=== PATIENT | female | born 1950 | race Caucasian/White ===

== ENCOUNTER 2018-04-19 17:18 | Inpatient (IN) ==
[2018-04-19] MEDS ORDERED: D5% in Water 1,000 ML IVC PRN (19:42)
[2018-04-19] MEDS ORDERED: *HR* Dextrose 50 % in Water (Syg) 50 ML SYRINGE IVP PRN (19:42)
[2018-04-19] MEDS ORDERED: Dextrose Gel 15 GM/37.5 ML TUBE PO PRN ×2 (19:42)
[2018-04-19] MEDS ORDERED: D5% in Lactated Ringers 1,000 ML IVC SCH (19:45)
--- NOTE | 2018-04-19 20:04 | Internal Med History&Physical ---
Date of Encounter: 04/19/18 Time of Encounter: 20:01 Internal Medicine - H&P: HPI Chief complaint: fatigue Admitted From: Hospital to Hospital Transfer Plans for Post Hospital Care: Home History of present illness: Dorothy Morocho is a 67-year-old woman who reports a history of hypertension, diabetes and hyperlipidemia who presents on transfer from [facility] for evaluation of acute blood loss anemia due to upper GI bleed. She states that approximately one year ago she was found anemic and subsequently had an EGD and colonoscopy which found a bleeding vein in her stomach; since then she has been on twice a day PPI. Now she says that about one week ago she was told by her primary care physician that she was anemic and would likely require blood transfusion but this was never set up. Yesterday she noticed dark stool and started to feel generalized fatigue, malaise and weakness but no abdominal pain or paulo red blood in stool. She went to the emergency room where it is reported that her hemoglobin was 5.8 and she was given 2 units of blood transfusion prior to her transfer here. At this time she reports feeling well and has no complaints. Past Med Surg Social Fam HX - Past Medical History Medical history: diabetes, hypertension Psychiatric history: no psych history - Past Surgical History Additional surgical history: Gallbladder removed. tubal - Social History Smoking Status: Current every day smoker Packs per day: 1 PPD Smokeless Tobacco Status: No Alcohol use: none Drug use: none Internal Medicine - H&P: Meds Allergy/AdvReac Type Severity Reaction Status Date / Time Sulfa (Sulfonamide AdvReac Nausea Verified 06/18/16 09:32 Antibiotics) All Systems PM: A 10-system review of systems was performed and is negative for pertinent findings except as documented above in the HPI. Family history of heart disease in father who is now . - Constitutional Vitals: Temp Pulse Resp BP Pulse Ox 98.6 F 78 16 160/76 96 04/19/18 18:37 04/19/18 18:37 04/19/18 18:37 04/19/18 18:37 04/19/18 18:37 Exam: Vitals: Reviewed General: Well-developed and well-appearing lying comfortably in bed in no acute distress. Skin: Warm and supple. HEENT: Moist mucous membranes. (+) conjunctivae pallor. Neck: No lymphadenopathy. No JVD. No palpable thyroid. Chest: Normal thoracic expansion. Diminished breath sounds in the left lower lung field. Heart: Normal S1 & S2; rhythmic. Grade 4/6 systolic murmur auscultated at the apex and right upper sternal border.. Abdomen: Non-distended, soft and non-tender to palpation. No peritoneal reaction. Extremities: (+) fingernail clubbing but no cyanosis or edema. No calf tenderness. Normal distal pulses. Neurological: Awake, alert and oriented to person, place and time. No focal deficits. Psych: Affect appropriate. Internal Med - H&P Results - Labs CBC & Chem 7: 04/19/18 19:59 04/19/18 19:59 - Assessment and plan (1) UGIB (upper gastrointestinal bleed) Current Visit: Yes Status: Acute Assessment and plan: Has a prior history of a similar event. Will keep NPO tonight and consult GI tomorrow for endoscopic evaluation. Start BID IV PPI. Currently asymptomatic and not warranting urgent intervention. (2) Anemia Current Visit: Yes Status: Acute Assessment and plan: secondary to blood loss as evidenced by Hgb of 5.8 at [facility] and dark stool for 1 day. Now s/p 2U pRBC. Will recheck values here. Will require iron supplementation once cleared for oral intake. Qualifiers: Anemia type: iron deficiency Iron deficiency anemia type: chronic blood loss Qualified Code(s): D50.0 - Iron deficiency anemia secondary to blood loss (chronic) (3) Diabetes Current Visit: Yes Status: Acute Assessment and plan: Uses metformin at home. Will place on insulin sliding scale in the interim. Qualifiers: Diabetes mellitus type: type 2 Diabetes mellitus chcf insulin use: without chcf use Diabetes mellitus complication status: with unspecified complications Qualified Code(s): E11.8 - Type 2 diabetes mellitus with unspecified complications (4) HTN (hypertension) Current Visit: Yes Status: Chronic Assessment and plan: Well controlled. Will hold anti-hypertensives for the time being in the setting of blood loss until more stable. Qualifiers: Hypertension type: essential hypertension Qualified Code(s): I10 - Essential (primary) hypertension (5) HLD (hyperlipidemia) Current Visit: Yes Status: Acute Assessment and plan: Can resume statin/ezetimibe once cleared for oral intake. Qualifiers: Hyperlipidemia type: unspecified Qualified Code(s): E78.5 - Hyperlipidemia, unspecified (6) Smoker Current Visit: Yes Status: Acute Assessment and plan: Smoking cessation counseling provided. Resources made available. (7) Murmur Current Visit: Yes Status: Acute Assessment and plan: Likely secondary to severe anemia. Will get an echo to rule out valvulopathy just in case. (8) Breath sounds, abnormal Current Visit: Yes Status: Acute Assessment and plan: Notable reduction of breath sounds in the left chest. No rales, wheezing or rhonchi. Will get a Pa/lat x-ray for review. (9) DVT prophylaxis Current Visit: Yes Status: Acute - Time Spent With Patient Total time spent is greater than 50% in coordination of care (as documented) at patient's floor/unit and/or counseling patient: Greater than 35 minutes
[2018-04-19 20:11] LABS: Immature Granulocytes % 0.3 % (0-4)
[2018-04-19 20:12] LABS: Basophils % 0.3 %; Eosinophils # 0.1 K/mcL (0.0-0.6); Eosinophils % 1.3 %; Hematocrit 28.1 % (35.3-44.9); Hemoglobin 8.2 g/dL (11.5-15.4); Lymphocytes # 1.5 K/mcL (0.6-4.6); Lymphocytes % 24.2 %; Mean Corpuscular HGB Conc 29.2 g/dL (31.6-35.5); Mean Corpuscular Hemoglobin 21.9 pg (28.0-33.3); Mean Corpuscular Volume 75.1 fL (83.0-100.0); Mean Platelet Volume 10.3 fL (9.4-12.4); Monocytes # 0.5 K/mcL (0.0-1.3); Monocytes % 8.6 %; Nucleated Red Blood Cells 0.6 /100 WBC (0); Platelet Count 241 K/mcL (140-400); Red Blood Count 3.74 M/mcL (3.82-4.97); Red Cell Distribution Width 18.6 % (11.5-14.5); Segmented Neutrophils % 65.3 %
[2018-04-19 20:13] LABS: Neutrophils # 4.1 K/mcL (1.6-8.9)
[2018-04-19 20:21] LABS: INR 0.9; Prothrombin Time 10.2 Seconds (9.4-12.1)
[2018-04-19 20:24] LABS: Activated Partial Thrombo Time 27.7 Seconds (26.0-36.0)
[2018-04-19 20:31] LABS: Alanine Aminotransferase 47 Units/L (7-52); Albumin 3.8 g/dL (3.5-5.7); Albumin/Globulin Ratio 1.4 (1.1-2.2); Alkaline Phosphatase 89 Units/L (34-104); Aspartate Amino Transferase 43 Units/L (13-39); BUN/Creatinine Ratio 18 (6-26); Bilirubin,Direct 0.2 mg/dL (0.0-0.2); Bilirubin,Indirect 0.9 mg/dL (0.0-1.2); Bilirubin,Total 1.1 mg/dL (0.3-1.0); Blood Urea Nitrogen 20 mg/dL (8-23); Calcium 9.2 mg/dL (8.6-10.3); Carbon Dioxide 23 mEq/L (23-29); Chloride 104 mEq/L (98-107); Globulin 2.7 g/dL (2.4-3.5); Glucose 110 mg/dL (70-105); Osmolality,Calculated 281 (280-300); Potassium 4.1 mEq/L (3.5-5.1); Sodium 134 mEq/L (136-145); Total Protein 6.5 g/dL (6.4-8.9); eGFR For Non-African Americans 50 (> 60)
[2018-04-19 20:37] LABS: Hypochromasia Present (Not Present); Platelet Estimate Normal (Normal)
[2018-04-19] MEDS: Pantoprazole 40 MG VIAL IVP SCH (23:00)
[2018-04-20] MEDS: Insulin LISPRO 300 UNITS/3 ML VIAL SQ SCH ×4 (01:19→17:31)
[2018-04-20 04:38] LABS: Basophils % 0.5 %; Eosinophils # 0.1 K/mcL (0.0-0.6); Eosinophils % 1.4 %; Hematocrit 28.6 % (35.3-44.9); Hemoglobin 8.2 g/dL (11.5-15.4); Immature Granulocytes % 0.5 % (0-4); Lymphocytes # 1.4 K/mcL (0.6-4.6); Lymphocytes % 22.9 %; Mean Corpuscular HGB Conc 28.7 g/dL (31.6-35.5); Mean Corpuscular Hemoglobin 21.6 pg (28.0-33.3); Mean Corpuscular Volume 75.3 fL (83.0-100.0); Mean Platelet Volume 10.8 fL (9.4-12.4); Monocytes # 0.5 K/mcL (0.0-1.3); Neutrophils # 4.2 K/mcL (1.6-8.9); Nucleated Red Blood Cells 0.5 /100 WBC (0); Platelet Count 245 K/mcL (140-400); Red Cell Distribution Width 18.4 % (11.5-14.5); Segmented Neutrophils % 66.7 %
[2018-04-20 04:59] LABS: Anisocytosis 1+ (Not Present); Hypochromasia Present (Not Present); Platelet Estimate Normal (Normal); Polychromasia 1+ (Not Present)
[2018-04-20] MEDS: Pantoprazole 40 MG VIAL IVP SCH ×2 (09:54→22:26)
--- NOTE | 2018-04-20 12:03 | Internal Med Progress Note ---
Hospitalist Progress Note - Encounter Date of Encounter: 04/20/18 Time of Encounter: 12:01 - Subjective Interval History: Patient sitting comfortably on chair watching TV. No active bleeding. Reviewed the lab with a stable hemoglobin. Awaiting to be seen by GI specialist Denies fever chills nausea vomiting headache dizziness chest pain shortness of breath abdominal pain urinary complaint - Exam Vitals: Temp Pulse Resp BP Pulse Ox 97.9 F 77 15 122/76 94 04/20/18 10:46 04/20/18 10:46 04/20/18 10:46 04/20/18 10:46 04/20/18 10:46 Exam: General appearance: No acute distress Head exam: Atraumatic Eye exam: EOMI, PERRLA ENT exam: Moist oral mucosa Neck nontender, supple Respiratory exam: Clear to auscultation bilaterally Cardiovascular exam: Regular rate and rhythm, 2/6 systolic murmur Abdominal exam: Soft, nontender, nondistended, positive bowel sounds Extremities exam: No calf tenderness, no pedal edema Present: Skin-no rash, warm, dry, intact Neurological exam: Alert, awake, oriented 3, CN II-XII intact, no focal deficits. No facial droop. Normal speech. Normal gait. - Assessment and Plan (1) Anemia Current Visit: Yes Status: Acute Assessment and Plan: Symptomatic secondary to acute blood loss. secondary to blood loss as evidenced by Hgb of 5.8 at [facility] and dark stool for 1 day. Now s/p 2U pRBC. A stable hemoglobin at this time is staying around it. Patient takes iron supplementation at home. (2) UGIB (upper gastrointestinal bleed) Current Visit: Yes Status: Acute Assessment and Plan: Has a prior history of a similar event and had endoscopy done with finding of bleeding ulcer in ?vein. keep NPO while awaiting for GI specialist for possible endoscopy. Continue IV fluid. PPI IV twice a day. SCDs for GI prophylaxis. (3) Diabetes Current Visit: Yes Status: Acute Assessment and Plan: Uses metformin at home. Will place on insulin sliding scale in the interim. (4) HTN (hypertension) Current Visit: Yes Status: Chronic Assessment and Plan: Well controlled. Resumed home antihypertensive medicine except lisinopril while keeping eye on her blood pressures. No active bleeding. Close monitoring of BP (5) HLD (hyperlipidemia) Current Visit: Yes Status: Acute Assessment and Plan: Can resume statin/ezetimibe once cleared for oral intake. (6) Smoker Current Visit: Yes Status: Acute Assessment and Plan: Smoking cessation counseling provided. Resources made available. (7) Murmur Current Visit: Yes Status: Acute Assessment and Plan: Likely secondary to severe anemia. Echocardiogram with preserved LV function 65% mild a as, ER, ER, UT, mild pulmonary hypertension otherwise no acute finding. (8) Breath sounds, abnormal Current Visit: Yes Status: Acute Assessment and Plan: Chest x-ray with no acute finding except some emphysematous changes. Slight diminished breath sounds but otherwise clear to auscultation (9) DVT prophylaxis Current Visit: Yes Status: Acute Assessment and Plan: SCDs - Time Spent with Patient Total time spent is greater than 50% in coordination of care (as documented) at patient's floor/unit and/or counseling patient: 25 - 35 minutes Plan of Care Discussed with: patient (Discuss plan of care with nurse) Internal Medicine: Result - Labs CBC & Chem 7: 04/20/18 03:07 04/19/18 19:59 Labs: Short CBC 04/19/18 04/20/18 Range/Units 19:59 03:07 WBC 6.2 6.3 (4.3-11.1) K/mcL Hgb 8.2 L 8.2 L (11.5-15.4) g/dL Hct 28.1 L 28.6 L (35.3-44.9) % Plt Count 241 245 (140-400) K/mcL Neutrophils # 4.1 4.2 (1.6-8.9) K/mcL BMP 04/19/18 19:59 Sodium 134 L Potassium 4.1 Chloride 104 Carbon Dioxide 23 BUN 20 Creatinine 1.10 Glucose 110 H Calcium 9.2 Liver Function 04/19/18 Range/Units 19:59 Total Bilirubin 1.1 H (0.3-1.0) mg/dL Direct Bilirubin 0.2 (0.0-0.2) mg/dL AST 43 H (13-39) Units/L ALT 47 (7-52) Units/L Alkaline Phosphatase 89 (34-104) Units/L Albumin 3.8 (3.5-5.7) g/dL - ABG Interpretation ABG results: PT/INR, D-dimer PT 10.2 Seconds (9.4-12.1) 04/19/18 19:59 - Impressions Impressions Chest X-Ray 04/19/18 21:33 IMPRESSION: No definite acute pulmonary disease. Pulmonary sequela typical of that seen with smoking, including emphysema. Correlate with clinical history. Calcific atherosclerotic disease aorta. D/ / Augustus Tavarez / Augustus Tavarez Interpreting Provider: Augustus Tavarez Echocardiogram 04/20/18 11:00 Impressions: LVEF 65%. Normal LV chamber size, wall thickness and function. Normal right ventricular structure and function. Mild aortic stenosis and mild aortic regurgitation. Mild mitral regurgitation. Mild tricuspid regurgitation. Mild pulmonary hypertension. Left Ventricular Wall Motion: Rest Echo Findings All wall segments showed normal motion. Findings: Study Quality * Technically adequate exam. ECG Findings * Normal sinus rhythm. Left Ventricle * LVEF 65%. * Normal LV chamber size, wall thickness and function. * Normal left ventricular diastolic function. * Definity echo contrast was not used. Right Ventricle * Normal right ventricular structure and function. Left Atrium * Normal left atrial size. Right Atrium * Normal right atrial size. Interatrial Septum * Interatrial septum not well evaluated. * No evidence of PFO by color Doppler. Aortic Valve * Severely calcified commissure between right cusp and non-coronary cusp. * Mild aortic stenosis. * Mild aortic regurgitation. Mitral Valve * Mild mitral annular calcification * No mitral stenosis. * Mild mitral regurgitation. Tricuspid Valve * Normal tricuspid valve structure. * No tricuspid stenosis. * Mild tricuspid regurgitation. * Estimated RVSP is 39 mmHg. * Estimated RA pressure is 3 mmHg. * Mild pulmonary hypertension. Pulmonic Valve * Pulmonic valve is not well visualized. * No pulmonic stenosis. * Trace pulmonic regurgitation. Aorta * Normally sized aortic root. Pericardium * The pericardium appears normal. IVC * Normal IVC dimensions and inspiratory collapse. Consult Discharge Plan - Plan Referrals: Ivonne Cabezas [Primary Care Provider] - (1) Anemia Qualifiers: Anemia type: iron deficiency Iron deficiency anemia type: chronic blood loss Qualified Code(s): D50.0 - Iron deficiency anemia secondary to blood loss ( chronic) (3) Diabetes Qualifiers: Diabetes mellitus type: type 2 Diabetes mellitus intermediate accountant insulin use: without residential use Diabetes mellitus complication status: with unspecified complications Qualified Code(s): E11.8 - Type 2 diabetes mellitus with unspecified complications (4) HTN (hypertension) Qualifiers: Hypertension type: essential hypertension Qualified Code(s): I10 - Essential (primary) hypertension (5) HLD (hyperlipidemia) Qualifiers: Hyperlipidemia type: unspecified Qualified Code(s): E78.5 - Hyperlipidemia, unspecified
--- NOTE | 2018-04-20 12:17 | Gastroenterology Consult Note ---
<Gio Bullock - Last Filed: 04/20/18 12:15> Date of Encounter: 04/20/18 Time of Encounter: 10:10 - Assessment and plan (1) Anemia Current Visit: Yes Status: Acute Assessment and plan: At [facility] Hgb 5.8 and was given 2 units PRBC. On admission here, Hgb 8.2 with MCV 75.1 and BUN 20. Today Hgb 8.2 with MC 75.3. Plan for EGD and colonoscopy tomorrow. Clear liquid diet today, no red or purple. NPO at midnight. If unable tolerate NuLytely please use MiraLAX prep. If not clear by 6 AM, give 2 tap water enemas. Qualifiers: Anemia type: iron deficiency Iron deficiency anemia type: chronic blood loss Qualified Code(s): D50.0 - Iron deficiency anemia secondary to blood loss (chronic) (2) GI bleed Current Visit: Yes Status: Acute Assessment and plan: Pt with BRBPR and dark stool. Continue PPI. Plan for EGD and colonoscopy tomorrow. Clear liquid diet today, no red or purple. NPO at midnight. If unable tolerate NuLytely please use MiraLAX prep. If not clear by 6 AM, give 2 tap water enemas. Qualifiers: GI bleed type/associated pathology: unspecified gastrointestinal hemorrhage type Qualified Code(s): K92.2 - Gastrointestinal hemorrhage, unspecified - Time Spent With Patient Total time spent is greater than 50% in coordination of care (as documented) at patient's floor/unit and/or counseling patient: GI History of Present Illness - Data of Consult Patient: new to practice Requesting Physician: Nicolas Sanders - Consult Narrative Reason for consult: UGIB, anemia History of present illness: Ms. Morocho is a 67 year old female with PMHx of DM, HTN, HLD who was transferred from [facility] for evaluation of acute blood loss anemia due to upper GI bleed. She states that approximately one year ago she was found anemic and subsequently had an EGD and colonoscopy at [place] in [place], which found a bleeding vein in her stomach; since then she has been on twice a day PPI. She reports 3 episodes of BRBPR on Friday but none on Friday. She also reports dark stool. At [facility] Hgb 5.8 and was given 2 units PRBC. On admission here, Hgb 8.2 with MCV 75.1 and BUN 20. Today Hgb 8.2 with MC 75.3. Procedures: EGD/colonoscopy 10/2016 [facility] in [place]: bleeding vein in her stomach per patient. NSAIDs: ASA Anticoagulation: None Past Med Surg Social Fam HX - Past Medical History Medical history: diabetes, hypertension Psychiatric history: no psych history - Past Surgical History Additional surgical history: Gallbladder removed. tubal - Social History Smoking Status: Current every day smoker Packs per day: 1 PPD Smokeless Tobacco Status: No Alcohol use: none Drug use: none - Gastrointestinal Gastrointestinal: Present: as per HPI - Constitutional Constitutional: as per HPI - EENT Eyes: as per HPI Ears: Present: as per HPI Nose, mouth and throat: Present: as per HPI - Cardiovascular Cardiovascular ROS: Present: as per HPI - Respiratory Respiratory IM: Present: as per HPI - Genitourinary Genitourinary: Absent: change in color, Urinary frequency - Neurological ROS Neurological GI: Present: as per HPI - Hematologic/Lymphatic Hematologic/Lymphatic pediatric: Present: as per HPI - Musculoskeletal Musculoskeletal ROS GI: Present: as per HPI - Integumentary Integumentary GI: Present: as per HPI - Psychiatric ROS Psychiatric GI: Present: as per HPI - Endocrine Endocrine IM: Present: as per HPI - Constitutional Vitals: Temp Pulse Resp BP Pulse Ox 97.9 F 77 15 122/76 94 04/20/18 10:46 04/20/18 10:46 04/20/18 10:46 04/20/18 10:46 04/20/18 10:46 General appearance: Present: cooperative, A&O X 3, no acute distress, answers questions appropriately - Head Head exam: Present: atraumatic, normocephalic - Eye Eye exam: Present: normal appearance, sclera anicteric - ENT ENT exam: Present: mucous membranes dry - Neck Neck exam general surgery: Present: normal inspection, trachea midline - Respiratory Respiratory exam: Present: CTAB. Absent: rales, rhonchi - Cardiovascular Cardiovascular exam: Present: +S1, +S2 Additional comments: + murmur - GI/Abdominal GI/Abdominal exam: Present: soft, no peritoneal signs. Absent: distended, firm, guarding, tenderness - Rectal Rectal exam: Present: deferred - Extremities Exam Extremities exam: Present: warm - Neurological Exam Neurological exam: Present: no focal deficits - Psychiatric Psychiatric exam: Present: normal affect, normal mood - Skin Skin exam: Present: dry, intact, normal color, warm Results - Labs CBC & Chem 7: 04/20/18 03:07 04/19/18 19:59 Labs: Last Result Calcium 9.2 mg/dL (8.6-10.3) 04/19/18 19:59 Entire Visit Hgb 8.2 g/dL (11.5-15.4) L 04/20/18 03:07 Hct 28.6 % (35.3-44.9) L 04/20/18 03:07 PT 10.2 Seconds (9.4-12.1) 04/19/18 19:59 Total Bilirubin 1.1 mg/dL (0.3-1.0) H 04/19/18 19:59 AST 43 Units/L (13-39) H 04/19/18 19:59 ALT 47 Units/L (7-52) 04/19/18 19:59 - ABG ABG results: PT/INR, D-dimer PT 10.2 Seconds (9.4-12.1) 04/19/18 19:59 - Impressions Impressions Chest X-Ray 04/19/18 21:33 IMPRESSION: No definite acute pulmonary disease. Pulmonary sequela typical of that seen with smoking, including emphysema. Correlate with clinical history. Calcific atherosclerotic disease aorta. D/ / Augustus Tavarez / Augustus Tavarez Interpreting Provider: Augustus Tavarez Echocardiogram 04/20/18 11:00 Impressions: LVEF 65%. Normal LV chamber size, wall thickness and function. Normal right ventricular structure and function. Mild aortic stenosis and mild aortic regurgitation. Mild mitral regurgitation. Mild tricuspid regurgitation. Mild pulmonary hypertension. Left Ventricular Wall Motion: Rest Echo Findings All wall segments showed normal motion. Findings: Study Quality * Technically adequate exam. ECG Findings * Normal sinus rhythm. Left Ventricle * LVEF 65%. * Normal LV chamber size, wall thickness and function. * Normal left ventricular diastolic function. * Definity echo contrast was not used. Right Ventricle * Normal right ventricular structure and function. Left Atrium * Normal left atrial size. Right Atrium * Normal right atrial size. Interatrial Septum * Interatrial septum not well evaluated. * No evidence of PFO by color Doppler. Aortic Valve * Severely calcified commissure between right cusp and non-coronary cusp. * Mild aortic stenosis. * Mild aortic regurgitation. Mitral Valve * Mild mitral annular calcification * No mitral stenosis. * Mild mitral regurgitation. Tricuspid Valve * Normal tricuspid valve structure. * No tricuspid stenosis. * Mild tricuspid regurgitation. * Estimated RVSP is 39 mmHg. * Estimated RA pressure is 3 mmHg. * Mild pulmonary hypertension. Pulmonic Valve * Pulmonic valve is not well visualized. * No pulmonic stenosis. * Trace pulmonic regurgitation. Aorta * Normally sized aortic root. Pericardium * The pericardium appears normal. IVC * Normal IVC dimensions and inspiratory collapse. Consult Discharge Plan - Plan Referrals: Ivonne Cabezas [Primary Care Provider] - <Gwen Pitts - Last Filed: 04/20/18 20:31> Date of Encounter: 04/20/18 Time of Encounter: 15:00 - Time Spent With Patient Total time spent is greater than 50% in coordination of care (as documented) at patient's floor/unit and/or counseling patient: GI History of Present Illness - Data of Consult Requesting Physician: Nicolas Sanders - Consult Narrative History of present illness: Ms. Morocho is a 67 year old female - Constitutional Vitals: Temp Pulse Resp BP Pulse Ox 97.6 F 84 16 138/70 98 04/20/18 19:51 04/20/18 19:51 04/20/18 19:51 04/20/18 19:51 04/20/18 19:51 Results - Labs CBC & Chem 7: 04/20/18 03:07 04/19/18 19:59 Labs: Last Result Calcium 9.2 mg/dL (8.6-10.3) 04/19/18 19:59 Entire Visit Hgb 8.2 g/dL (11.5-15.4) L 04/20/18 03:07 Hct 28.6 % (35.3-44.9) L 04/20/18 03:07 PT 10.2 Seconds (9.4-12.1) 04/19/18 19:59 Total Bilirubin 1.1 mg/dL (0.3-1.0) H 04/19/18 19:59 AST 43 Units/L (13-39) H 04/19/18 19:59 ALT 47 Units/L (7-52) 04/19/18 19:59 - ABG ABG results: PT/INR, D-dimer PT 10.2 Seconds (9.4-12.1) 04/19/18 19:59 - Impressions Impressions Chest X-Ray 04/19/18 21:33 IMPRESSION: No definite acute pulmonary disease. Pulmonary sequela typical of that seen with smoking, including emphysema. Correlate with clinical history. Calcific atherosclerotic disease aorta. D/ / Augustus Tavarez / Augustus Tavarez Interpreting Provider: Augustus Tavarez Echocardiogram 04/20/18 11:00 Impressions: LVEF 65%. Normal LV chamber size, wall thickness and function. Normal right ventricular structure and function. Mild aortic stenosis and mild aortic regurgitation. Mild mitral regurgitation. Mild tricuspid regurgitation. Mild pulmonary hypertension. Left Ventricular Wall Motion: Rest Echo Findings All wall segments showed normal motion. Findings: Study Quality * Technically adequate exam. ECG Findings * Normal sinus rhythm. Left Ventricle * LVEF 65%. * Normal LV chamber size, wall thickness and function. * Normal left ventricular diastolic function. * Definity echo contrast was not used. Right Ventricle * Normal right ventricular structure and function. Left Atrium * Normal left atrial size. Right Atrium * Normal right atrial size. Interatrial Septum * Interatrial septum not well evaluated. * No evidence of PFO by color Doppler. Aortic Valve * Severely calcified commissure between right cusp and non-coronary cusp. * Mild aortic stenosis. * Mild aortic regurgitation. Mitral Valve * Mild mitral annular calcification * No mitral stenosis. * Mild mitral regurgitation. Tricuspid Valve * Normal tricuspid valve structure. * No tricuspid stenosis. * Mild tricuspid regurgitation. * Estimated RVSP is 39 mmHg. * Estimated RA pressure is 3 mmHg. * Mild pulmonary hypertension. Pulmonic Valve * Pulmonic valve is not well visualized. * No pulmonic stenosis. * Trace pulmonic regurgitation. Aorta * Normally sized aortic root. Pericardium * The pericardium appears normal. IVC * Normal IVC dimensions and inspiratory collapse. - Attending Attestation I examined this patient and my medical decision-making was reviewed with the Resident Physician. I agree with the documented findings, disposition and treatment plan as described except to the extent set forth below. Pt seen, Pt deniesabd pain or black stool. Does has occ blood in stool. o/E Abd soft. A; Severe PATRICA, microcytic. R: EGD-colon am
[2018-04-20] MEDS ORDERED: SODIUM CHLORIDE/NAHCO3/KCL/PEG 4,000 ML SOLN.RECON PO ONE (17:00)
[2018-04-21] MEDS: Insulin LISPRO 300 UNITS/3 ML VIAL SQ SCH ×4 (01:03→18:10)
[2018-04-21] MEDS: Pantoprazole 40 MG VIAL IVP SCH ×2 (11:07→23:04)
[2018-04-21] MEDS: Bisoprolol/HCTZ 10/6.25 TABLET PO SCH (11:07)
[2018-04-21] MEDS ORDERED: D5% in Water 1,000 ML IVC PRN (15:19)
[2018-04-21] MEDS ORDERED: Dextrose Gel 15 GM/37.5 ML TUBE PO PRN (15:19)
[2018-04-21] MEDS ORDERED: *HR* Dextrose 50 % in Water (Syg) 50 ML SYRINGE IVP PRN (15:19)
--- NOTE | 2018-04-21 16:22 | Internal Med Progress Note ---
Hospitalist Progress Note - Encounter Date of Encounter: 04/21/18 Time of Encounter: 16:13 - Subjective Interval History: Patient sitting comfortably on chair watching TV. No active bleeding. Patient is nothing by mouth and plan for endoscopically today. Denies fever chills nausea vomiting headache dizziness chest pain shortness of breath abdominal pain urinary complaint - Exam Vitals: Temp Pulse Resp BP Pulse Ox 98.2 F 74 15 149/78 93 04/21/18 14:51 04/21/18 14:51 04/21/18 14:51 04/21/18 14:51 04/21/18 14:51 Exam: General appearance: No acute distress Respiratory exam: Clear to auscultation bilaterally Cardiovascular exam: Regular rate and rhythm, 2/6 systolic murmur Abdominal exam: Soft, nontender, nondistended, positive bowel sounds Neurological-grossly intact - Assessment and Plan (1) Anemia Current Visit: Yes Status: Acute Assessment and Plan: Admission patient was Symptomatic secondary to acute blood loss. secondary to blood loss as evidenced by Hgb of 5.8 at [facility] and dark stool for 1 day. Now s/p 2U pRBC. A stable hemoglobin at this time. Patient takes iron supplementation at home. (2) UGIB (upper gastrointestinal bleed) Current Visit: Yes Status: Acute Assessment and Plan: Has a prior history of a similar event and had endoscopy done with finding of bleeding ulcer in ?vein. keep NPO . scheduled endoscopy later in the evening today. Continue IV fluid. PPI IV twice a day. SCDs for GI prophylaxis. plan for dc tomorrow if stable (3) Diabetes Current Visit: Yes Status: Acute Assessment and Plan: Uses metformin at home. Will continue on insulin sliding scale in the interim. (4) HTN (hypertension) Current Visit: Yes Status: Chronic Assessment and Plan: Well controlled. Resumed home antihypertensive medicine except lisinopril while keeping eye on her blood pressures. No active bleeding. Close monitoring of BP (5) HLD (hyperlipidemia) Current Visit: Yes Status: Acute Assessment and Plan: Can resume statin/ezetimibe once cleared for oral intake. (6) Smoker Current Visit: Yes Status: Acute Assessment and Plan: Smoking cessation counseling provided. Resources made available. (7) Murmur Current Visit: Yes Status: Acute Assessment and Plan: Likely secondary to severe anemia. Echocardiogram with preserved LV function 65% mild a as, ER, ER, [place], mild pulmonary hypertension otherwise no acute finding. (8) Breath sounds, abnormal Current Visit: Yes Status: Acute Assessment and Plan: Chest x-ray with no acute finding except some emphysematous changes. Slight diminished breath sounds but otherwise clear to auscultation (9) DVT prophylaxis Current Visit: Yes Status: Acute Assessment and Plan: SCDs - Time Spent with Patient Total time spent is greater than 50% in coordination of care (as documented) at patient's floor/unit and/or counseling patient: less than 15 minutes Plan of Care Discussed with: patient Internal Medicine: Result - Labs CBC & Chem 7: 04/20/18 03:07 04/19/18 19:59 - ABG Interpretation ABG results: PT/INR, D-dimer PT 10.2 Seconds (9.4-12.1) 04/19/18 19:59 Consult Discharge Plan - Plan Referrals: Ivonne Cabezas [Primary Care Provider] - (1) Anemia Qualifiers: Anemia type: iron deficiency Iron deficiency anemia type: chronic blood loss Qualified Code(s): D50.0 - Iron deficiency anemia secondary to blood loss (chronic) (3) Diabetes Qualifiers: Diabetes mellitus type: type 2 Diabetes mellitus [facility] insulin use: without [facility] use Diabetes mellitus complication status: with unspecified complications Qualified Code(s): E11.8 - Type 2 diabetes mellitus with unspecified complications (4) HTN (hypertension) Qualifiers: Hypertension type: essential hypertension Qualified Code(s): I10 - Essential (primary) hypertension (5) HLD (hyperlipidemia) Qualifiers: Hyperlipidemia type: unspecified Qualified Code(s): E78.5 - Hyperlipidemia, unspecified
[2018-04-21] MEDS ORDERED: *HR* Midazolam HCl 5 MG/5 ML VIAL IVP ONE ×2 (17:50→17:57)
[2018-04-21] MEDS ORDERED: *HR* FentaNYL (PF) 100 MCG/2 ML VIAL ONE (17:50)
[2018-04-21] MEDS ORDERED: *HR* FentaNYL (PF) 100 MCG/2 ML VIAL IVP ONE (17:57)
[2018-04-21] MEDS ORDERED: Simethicone 40 MG/0.6 ML MLS IR ONE (17:57)
[2018-04-21] MEDS ORDERED: Tetracaine/Benzocaine/Butamben 1 SPRAY AEROSOL MM ONE (17:57)
--- NOTE | 2018-04-21 18:08 | Pre-Sedation Evaluation ---
Pre-sedation evaluation - Pre-sedation checklist Date of procedure: 04/21/18 Recent Vitals: Last Vital Signs Temp 98.2 F 04/21/18 14:51 Pulse 77 04/21/18 17:42 Resp 16 04/21/18 17:42 BP 150/83 04/21/18 17:42 Pulse Ox 95 04/21/18 17:42 ASA Classification *see protocol: CLASS II-Mild systemic disease Plan of Care: Pt appropriate candidate for procedure/moderate/conscious sedation, Risks/benefits of procedure/sedation discussed w/ patient/family
[2018-04-22] MEDS: Insulin LISPRO 300 UNITS/3 ML VIAL SQ SCH ×2 (00:53→05:37)
[2018-04-22 04:51] LABS: Monocytes # 0.4 K/mcL (0.0-1.3); Monocytes % 7.6 %
[2018-04-22 04:52] LABS: Basophils % 0.3 %; Eosinophils # 0.2 K/mcL (0.0-0.6); Eosinophils % 2.6 %; Hematocrit 30.1 % (35.3-44.9); Hemoglobin 8.7 g/dL (11.5-15.4); Immature Granulocytes % 0.2 % (0-4); Lymphocytes # 1.1 K/mcL (0.6-4.6); Lymphocytes % 18.6 %; Mean Corpuscular HGB Conc 28.9 g/dL (31.6-35.5); Mean Corpuscular Hemoglobin 21.5 pg (28.0-33.3); Mean Corpuscular Volume 74.5 fL (83.0-100.0); Mean Platelet Volume 10.1 fL (9.4-12.4); Neutrophils # 4.1 K/mcL (1.6-8.9); Platelet Count 243 K/mcL (140-400); Red Blood Count 4.04 M/mcL (3.82-4.97); Red Cell Distribution Width 20.4 % (11.5-14.5); Segmented Neutrophils % 70.7 %
[2018-04-22 05:08] LABS: BUN/Creatinine Ratio 16 (6-26); Blood Urea Nitrogen 13 mg/dL (8-23); Calcium 8.7 mg/dL (8.6-10.3); Carbon Dioxide 23 mEq/L (23-29); Chloride 103 mEq/L (98-107); Glucose 103 mg/dL (70-105); Osmolality,Calculated 276 (280-300); Potassium 3.5 mEq/L (3.5-5.1); Sodium 133 mEq/L (136-145); eGFR For Non-African Americans > 60 (> 60)
[2018-04-22 05:55] LABS: Hypochromasia Present (Not Present); Platelet Estimate Normal (Normal)
[2018-04-22] MEDS: Bisoprolol/HCTZ 10/6.25 TABLET PO SCH (09:23)
--- NOTE | 2018-04-22 10:20 | Discharge Summary ---
- NOTES TO OUTPATIENT PROVIDER Notes to Outpatient Provider: f.u with PCP IN 3-4 DAYS- CBC monitoring. F/U with GI specialist in 1-2 wks-Dr. Pitts office will call patient to schedule capsule endoscopy Orders not resulted at time of discharge: Pending orders 04/21/18 18:51 Surgical Pathology [PTH] Routine Date of Encounter: 04/22/18 Time of Encounter: 10:17 - Discharge Diagnosis (1) Anemia Priority: Primary Status: Acute Assessment and Plan: Admission patient was Symptomatic secondary to acute blood loss. secondary to blood loss as evidenced by Hgb of 5.8 at [facility] and dark stool for 1 day. Now s/p 2U pRBC. stable hemoglobin at the time of dc. continue iron supplementation . Discussed discharge plan with GI specialist who is okay to discharge patient home with follow-up in his office for outpatient capsule endoscopy and his office will call the patient with appointment. Will discharge patient on home dose PPI and continue aspirin as well. Qualifiers: Anemia type: iron deficiency Iron deficiency anemia type: chronic blood loss Qualified Code(s): D50.0 - Iron deficiency anemia secondary to blood loss (chronic) (2) UGIB (upper gastrointestinal bleed) Priority: Primary Status: Acute Assessment and Plan: Has a prior history of a similar event and had endoscopy done with finding of bleeding ulcer in ?vein. 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 Diabetes mellitus complication status: with unspecified complications Qualified Code(s): E11.8 - Type 2 diabetes mellitus with unspecified complications (4) HTN (hypertension) Priority: Secondary Status: Chronic Assessment and Plan: continue home meds Qualifiers: Hypertension type: essential hypertension Qualified Code(s): I10 - Essential (primary) hypertension (5) HLD (hyperlipidemia) Priority: Secondary Status: Acute Assessment and Plan: home meds Qualifiers: Hyperlipidemia type: unspecified Qualified Code(s): E78.5 - Hyperlipidemia, unspecified (6) Smoker Priority: Primary Status: Acute Assessment and Plan: Smoking cessation counseling provided. Resources made available. (7) Murmur Priority: Secondary Status: Acute Assessment and Plan: Likely secondary to severe anemia. Echocardiogram with preserved LV function 65% mild a as, ER, ER, [place], mild pulmonary hypertension otherwise no acute finding. (8) Breath sounds, abnormal Priority: Primary Status: Acute Assessment and Plan: Chest x-ray with no acute finding except some emphysematous changes. clear to auscultation Hospital course: Ms. Morocho is a 67 year old female patient got admitted for GI bleed and symptomatic anemia. Patient is a status post 2 unit [facility]. GI specialist was consulted and did perform upper GI endoscopy. Please see details in diagnosis section of discharge summary. At the time of discharge Her hemoglobin has been stable, tolerating oral diet and ambulating well. Will discharge patient on home dose of PPI and follow-up with GI specialist for outpatient capsule endoscopy-GI office will call the patient with appointment. Discharge discussed with: patient, nurse - Time Spent with Patient Total time spent providing and/or coordinating discharge services: Less than 30 minutes - Discharge Medications Home Medications: Alendronate Sodium [Fosamax] 70 mg PO TH 04/19/18 [History] Amitriptyline HCl 75 mg PO HS 04/19/18 [History] Aspirin [Adult Aspirin Regimen] 81 mg PO DAILY 04/19/18 [History] Ezetimibe [Zetia] 10 mg PO DAILY 04/19/18 [History] Lisinopril 2.5 mg PO DAILY 04/19/18 [History] Pantoprazole Sodium [Protonix] 40 mg PO DAILY 04/19/18 [History] Simvastatin [Zocor] 20 mg PO QPM 04/19/18 [History] Bisoprolol/HCTZ 106.25 [Ziac 106.25] 1 each PO DAILY 04/20/18 [History] Hydrocodone/Acetaminophen [Concepcion 5-325 Tablet] 1 tab PO DAILY 04/20/18 [History] Iron Ps Complex/B12/Folic Acid [Ferrex 150 Forte Capsule] 1 cap PO BID 04/20/18 [History] metFORMIN [Glucophage] 500 mg PO BID 04/20/18 [History] Allergies/Adverse Reactions: Allergy/AdvReac Type Severity Reaction Status Date / Time Sulfa (Sulfonamide AdvReac Nausea Verified 06/18/16 09:32 Antibiotics) Date of admission: 04/20/18 17:51 Primary care physician: Ivonne Cabezas Consults: 04/19/18 19:44 Consult to Gastroenterology [CONS] Routine Consulting Provider: Paul Quarles Reason for Consult: Patient with a history of UGIB a year ago presenting on transfer from [facility] with a reported Hgb of 5.8 and dark stool requiring 2U pRBC. Call Completed: No - Constitutional Vitals: Temp Pulse Resp BP Pulse Ox 98.1 F 80 14 136/63 93 04/22/18 06:39 04/22/18 06:39 04/22/18 06:39 04/22/18 06:39 04/22/18 06:39 Exam: General appearance: No acute distress Respiratory exam: Clear to auscultation bilaterally Cardiovascular exam: Regular rate and rhythm, 2/6 systolic murmur Abdominal exam: Soft, nontender, nondistended, positive bowel sounds Neurological-grossly intact - Patient Status Disposition: Home, Self-Care Condition: Good Overall status at discharge: patient is back to baseline - Discharge Instructions Follow Up With: Ivonne Cabezas [Primary Care Provider] - - Diet and Activity Activity: increase activity as tolerated Diet: advance to your usual diet
[2018-04-22] MEDS: Pantoprazole 40 MG VIAL IVP SCH (11:01)
[2018-04-22 12:04] VITALS: BP 136/64
== END 2018-04-22 12:15 | disposition home or self-care (01) | DRG 379 ==
LOC: 3ANU
PROVIDERS: ADMIT Hospitalist; ATTEND Hospitalist
PROC: ENDOEBX (2018-04-21 18:00)

== ENCOUNTER 2020-06-03 06:24 | Inpatient (IN) ==
[2020-06-03] MEDS ORDERED: Acetaminophen IV 1,000 MG/100 ML BAG IVPB ONE (10:09)
[2020-06-03] MEDS ORDERED: Naloxone 0.4 MG/ML INJ IVP PRN (10:50)
[2020-06-03] MEDS ORDERED: D5% in Water 1,000 ML IVC PRN (11:27)
[2020-06-03] MEDS ORDERED: Dextrose Gel 15 GM/37.5 ML TUBE PO PRN ×2 (11:27)
[2020-06-03] MEDS ORDERED: *HR* Dextrose 50 % in Water (Vial) 50 ML VIAL IVP PRN (11:27)
[2020-06-03] MEDS ORDERED: Insulin LISPRO 300 UNITS/3 ML VIAL SUBQ SCH ×2 (11:30→21:00)
[2020-06-03] MEDS ORDERED: Ringers Solution, Lactated 1,000 ML IVC SCH (11:45)
[2020-06-03] MEDS ORDERED: 0.9 % Sodium Chloride 1,000 ML ONE ×2 (12:04→13:24)
[2020-06-03] MEDS: 0.9 % Sodium Chloride 2,000 ML IVC ONE (12:05)
[2020-06-03] MEDS ORDERED: niCARdipine 20 MG/200 ML MLS IVC SCH (12:15)
[2020-06-03] MEDS ORDERED: Piperacillin/Tazobactam 3.375 GM in 0.9 % Sodium Chloride Mini Bag 100 ML IVPB SCH (13:00)
[2020-06-03 13:15] VITALS: BP 165/78
[2020-06-03] MEDS ORDERED: *HR* Heparin 5,000 UNIT/ML VIAL SQ SCH (16:00)
== END 2020-06-03 13:53 | disposition short-term general hospital (02) | DRG 871 ==
LOC: 2ANU
PROVIDERS: ADMIT Internal Medicine; ATTEND Internal Medicine